=== PATIENT | female | born 1995 | race Two or more races ===

== ENCOUNTER 2022-08-19 05:19 | Emergency (ER) | payer OTHER ==
[~2022-08-19] VITALS: Ht 165.1 cm; Wt 65.9 kg
[2022-08-19 06:38] VITALS: BP 100/58
[2022-08-19] MEDS ORDERED: AUG875T PO (07:46)
[2022-08-19] MEDS ORDERED: PROM1SOL4 PO (07:46)
== END 2022-08-19 07:56 | disposition home or self-care (01) ==
LOC: ER 05:19
DX: J20.9 Acute bronchitis, unspecified (principal); H66.91 Otitis media, unspecified, right ear
CPT/HCPCS: 71046